=== PATIENT | male | born 1940 | race Caucasian/White ===

== ENCOUNTER 2020-10-25 16:33 | Emergency (ER) | payer MEDICARE ==
[2020-10-25 16:51] LABS: BASOPHIL 0.4 % (0-2); EOSINOPHIL 1.8 % (0-7); HCT 44.3 % (42.0-52.0); HGB 15.5 g/dl (13.2-18.0); LYMPHOCYTE 23.6 % (15-48); MCH 36.2 pg (25.0-31.0); MCV 103.5 fL (78.0-100.0); MONOCYTE 8.2 % (0-12); MPV 10.5 fL (6.0-9.5); NEUTROPHIL 65.2 % (41-80); NRBC 0; PLT 172 K/uL (150-400); RBC 4.28 M/uL (4.70-6.00); RDW 12.2 % (11.5-14.0); WBC 13.6 K/uL (4.0-10.5)
[2020-10-25 17:00] LABS: INR 1.15 (0.9-1.2); PTT 30.3 SECONDS (22.2-34.7)
[2020-10-25 17:08] LABS: ALBUMIN 3.6 g/dL (3.4-5.0); BILIRUBIN - TOTAL 0.5 mg/dL (0.2-1.0); BUN/CREAT RATIO (CALC) 24.5 RATIO; CREATININE 1.02 mg/dL (0.67-1.17); GLOBULIN (CALCULATION) 3.1 g/dL; POTASSIUM 4.6 mmol/L (3.5-5.1); TOTAL PROTEIN 6.7 g/dL (6.4-8.2)
[2020-10-25 17:22] LABS: CKMB 2.4 ng/mL (0.0-3.6)
== END 2020-10-25 21:01 | disposition other institution (70) ==
LOC: FER 16:33
PROVIDERS: Emergency Medicine
DX: G45.9 Transient cerebral ischemic attack, unspecified (principal); I10 Essential (primary) hypertension; Z79.02 Long term (current) use of antithrombotics/antiplatelets
CPT/HCPCS: 36415; 70450; 71045; 80053; 80061; 82550; 82553; 83874; 84484; 85025; 85610; 85730; 93005